=== PATIENT | female | born 1955 | race Caucasian/White ===

== ENCOUNTER 2021-09-08 14:21 | Emergency (ER) | payer MEDICARE ==
[~2021-09-08] VITALS: Ht 167.6 cm; Wt 50.8 kg
[2021-09-08] MEDS ORDERED: FEOSOL325 MG PO (19:11)
== END 2021-09-08 21:33 | disposition home or self-care (01) ==
LOC: ED 14:21
DX: M54.50 Low back pain, unspecified (principal); D50.9 Iron deficiency anemia, unspecified
CPT/HCPCS: 36415; 36430; 74177; 80053; 81001; 85025; 85060; 86850; 86900; 86901; 86922; 99284-25; J1170; J1885; P9016; Q9967

== ENCOUNTER 2021-09-11 06:03 | Emergency (ER) | payer MEDICARE ==
[~2021-09-11] VITALS: Ht 167.6 cm; Wt 51.7 kg
[~2021-09-11 06:03] MED LIST: FEOSOL325 MG PO
--- OUTSIDE RECORDS SUMMARY | 2021-09-11 06:11 | XMS ---
PreManage Notification: YURY HOBSON Security [employer] Events No recent Security Events currently on file CRITERIA MET - [facility] - 2 Visits in 30 Days CARE PROVIDERS There are no care providers on record at this time. Deanne has no Care Guidelines for this patient. [facility] MO.) [facility] NOTE: Visits indicate total known visits. ED/C VISIT TRACKING (12 MO.) [facility] COMPLAINT: - L LOWER BACK PAIN 09/08/2021 14:21 [facility] OR TYPE: Emergency COMPLAINT: - BACK PAIN INPATIENT VISIT TRACKING (12 MO.) No inpatient visits to display in this time frame [email or web address]
[2021-09-11] MEDS ORDERED: ONDANSETRON ODT4 MG PO (08:49)
[2021-09-11] MEDS ORDERED: HYDROCODON-ACE1 EA10 PO (08:49)
== END 2021-09-11 10:03 | disposition home or self-care (01) ==
LOC: ED 06:03
DX: S33.5XXA Sprain of ligaments of lumbar spine, initial encounter (principal); M53.3 Sacrococcygeal disorders, not elsewhere classified; Z79.899 Other long term (current) drug therapy; V57.6XXA Passenger in pick-up truck or van injured in collision with fixed or stationary object in traffic accident, initial encounter
CPT/HCPCS: 36415; 72131; 72192; 85025; 85060; 96374; 96376; 99284-25; J3010

== ENCOUNTER 2023-04-09 22:27 | Observation (INO) | payer MEDICARE ==
[~2023-04-09] VITALS: Ht 167.6 cm; Wt 62.3 kg
[~2023-04-09 22:27] MED LIST changes: +HYDROCODON-ACE1 EA10 PO; +ONDANSETRON ODT4 MG PO
[2023-04-09] MEDS ORDERED: SODIUM CHLORIDE 0.9% 1,000 ML IV ONE (22:45)
[2023-04-09] MEDS ORDERED: ondansetron HCL 4 MG/2 ML VIAL IV ONE (22:45)
[2023-04-09] MEDS ORDERED: MORPHINE SULFATE 4 MG/ML VIAL IV ONE (22:45)
[2023-04-09 22:59] LABS: BASOPHILS 0.4 % (0-2); EOSINOPHILS 2.7 % (0-6); HEMATOCRIT 28.6 % (35.0-50.0); HEMOGLOBIN 8.6 g/dL (12.0-18.0); LYMPHOCYTES 10.7 % (24-44); MCH 20.9 (27-36); MCV 69.8 fl (81-99); MONOCYTES 6.9 % (0-12); NEUTROPHILS 79.3 % (39-80); PLATELET COUNT 307 K/uL (140-440); RBC 4.09 M/ul (4.3-5.7); RDW 19.1 (10.5-15.0)
[2023-04-09 23:07] LABS: ALBUMIN 2.4 g/dL (3.4-5.0); ALBUMIN/GLOBULIN RATIO 0.53 (1.1-2.4); ANION GAP 12.5 (7-21); BILIRUBIN, TOTAL 0.7 ng/dL (0.2-1.0); BUN/CREATININE RATIO 3.37 (6.0-28.6); CALCIUM 8.5 mg/dL (8.5-10.1); CREATININE, SERUM 0.89 mg/dL (0.55-1.02); POTASSIUM 3.5 mmol/L (3.5-5.1); PROTEIN, TOTAL 6.9 g/dL (6.4-8.2)
[2023-04-10] VITALS (7 sets, daily range): BP systolic 101–136; BP diastolic 63–79
[2023-04-10] MEDS ORDERED: LACTATED RINGER'S 1,000 ML IV SCH ×3 (00:15→09:15)
[2023-04-10] MEDS ORDERED: MORPHINE SULFATE 4 MG/ML VIAL IV PRN (00:15)
[2023-04-10] MEDS ORDERED: ondansetron HCL 4 MG/2 ML VIAL IV PRN ×2 (00:15→09:45)
--- NOTE | 2023-04-10 00:54 | NUR ---
pt ARRIVED TO MEDSUR FLOOR, BROUGHT TO FLOOR BY PRIMARY RN NEW. pt A/O, GRAHAM IN ROOM. ADMISSION COMPLETED, VSS. pt VERBALIZES UNDERSTANDING REGARDING POC FOR SHIFT, CALL LIGHT IN REACH. PRIMARY RN REMAINS IN ROOM COMPLETING ASSESSMENT.
--- NOTE | 2023-04-10 02:00 | NUR ---
PICKED PT UP IN ED, REC'D QUICK REPORT FROM RN. PT A/O X3, STATES PX 04/12 ON ARRIVAL,DENIES OFFER OF PAIN MEDS. ASSESSMENT COMPLETED. ORIENTED TO ROOM AND CALL LIGHT. U/A OBTAINED. IV FLUIDS INFUSING PER ORDERS. BED LOCKED IN LOW, CALL LIGHT IN PLACE, CONTINUE POC
[2023-04-10 02:10] LABS: BILIRUBIN, URINE NEGATIVE (negative); BLOOD/HGB, URINE SMALL (Negative); KETONE, URINE NEGATIVE (Negative); LEUK ESTERASE, URINE NEGATIVE (negative); NITRITE, URINE NEGATIVE (negative); PH, URINE 5.5 (5-7)
[2023-04-10 02:16] LABS: EPITHELIAL CELLS, URINE SQUAMOUS 1+ /lpf (0-1+)
[2023-04-10 02:17] LABS: BACTERIA, URINE RARE /hpf (negative); CASTS, URINE NONE SEEN \\lpf; CRYSTALS, URINE NONE SEEN (0-1+); REFLEX CULTURE, URINE No (No)
--- NOTE | 2023-04-10 09:05 | NUR ---
RECIEVED PT REPORT t 0715. PT IS IN BED RESTING WITH EYES OPEN AND WATCHING TELEVISION. NO CARES NEEDED OR REQUESTED WHEN OFFERED. CURRENTLY PT IS IN BED WATCHING TELEVISION AND HAD HER FLUID BAG CHANGED. ASSESSMENT COMPLETE. CALL LIGHT WITHIN REACH
--- NOTE | 2023-04-10 09:05 | NUR ---
KATIA FROM DR. ANGELES TO START LR @ 125ML AND TO ADVANCE DIET TO CLEARS TOLERATED. ORDERS PLACED AT THIS TIME.
[2023-04-10] MEDS ORDERED: ENOXAPARIN SODIUM 40 MG/0.4 ML SYR SUB-Q SCH (09:44)
[2023-04-10] MEDS ORDERED: PANTOPRAZOLE SODIUM 40 MG TABEC PO SCH (09:45)
--- NOTE | 2023-04-10 10:01 | NUR ---
MED REC COMPLETE
--- NOTE | 2023-04-10 10:19 | NUR ---
ROUNDS. PT EXPRESSED FATIGUE, STATING DESIRE TO REST; DECLINED AUDIBLE PRAYER AT THIS TIME. PROVIDED SUPPORTIVE PRESENCE; LISTENED EMPATHETICALLY; PROVIDED HOPSITALITY; GAVE PRAYER SHAWL; PROVIDED SILENT PRAYER. PT EXPRESSED APPRECIATION.
[2023-04-10] MEDS ORDERED: PHARMACY RENAL DOSE ADJUSTMENT 1 DOSE MISC PO SCH (12:00)
--- NOTE | 2023-04-10 12:47 | NUR ---
PT FAMILY ASKED REPAIR WEAVER QUESTIONS ABOUT PT DIAGNOSIS. REPAIR WEAVER STATED THAT SHE DOES NOT HAVE ALL OF THE INFORMATION TO BE ABLE TO REALLY EXPLAIN TO THE PT. REPAIR WEAVER REPORTED THEIR QUESTIONS TO THE RN AND GAVE PT A PT EDUCATION SHEET ABOUT DIAGNOSIS. REPAIR WEAVER ALSO ASSISTED PT TO THE RESTROOM. PT DID NOT KNOW SHE NEEDED TO URINATE INTO THE HAT, REPAIR WEAVER PROVIDED EDUCATION ON THAT AND MARKED THE UNMEASURED VOIDED AMOUNT. CALL LIGHT WITHIN REACH NO FURTHER COMPLAINTS.
[2023-04-10] MEDS ORDERED: HYDROmorphone HCL 1 MG/ML SYR IV PRN (13:00)
--- NOTE | 2023-04-10 13:02 | NUR ---
DRORDERED 1MG OF DILAUDID Q6 PRN FOR PAIN AND 10MG OF NORCO Q6 FOR PAIN WITH 3 HOUR SEPERATION BETWEEN BOTH
--- NOTE | 2023-04-10 13:15 | NUR ---
Spoke with Patricia. She lives with her spouse. She has a walker and a cane. She denies any needs. States her spouse spoils her. They share all chores and denies any financial issues as they recently received a large inheritance. Pt plans on dc to home. No needs from CM.
--- NOTE | 2023-04-10 13:48 | NUR ---
UR NOTE 04/09/23 MET CLINICAL INDICATIONS FOR ADMISSION TO INPATIENT CARE ([facility])
[2023-04-10] MEDS ORDERED: HYDROCODONE/APAP 10/325 1 TAB PO PRN (16:00)
--- NOTE | 2023-04-10 17:39 | NUR ---
NOTICED PT DIDN'T VOID MUCH TODAY EXCEPT FOR ONE UNMEASURED VOID. BLADDER SCANNED SHOWS GASTON 247ML. CHECKED LUNG SOUNDS AND NO CRACKLES OR SIGNS OF FLUID OVERLOAD NO OTHER CARES NEEDED AT THIS TIME CALL LIGHT WITHIN REACH
--- NOTE | 2023-04-10 19:15 | NUR ---
REPORT RECIEVED FROM MELISSA BRO. pt RESTING IN THE BED. BOARD UPDATED. pt DENIES ANY OTHER NEEDS AT THIS TIME. CALL LIGHT WITHIN REACH.
--- NOTE | 2023-04-10 20:45 | NUR ---
ASSESSMENT AND VITAL SIGNS DONE. BOWEL TONES ACTIVE. pt DENIES PAIN OR ANY NEEDS AT THIS TIME. IV ASSESSED, WNL. IVF INFUSING PER ORDER, SEE MAR. WATER REFRESHED. pT DENIES ANY OTHER NEEDS AT THIS TIME. CALL LIGHT WITHIN REACH.
--- NOTE | 2023-04-10 23:15 | NUR ---
pt RESTING IN THE BED WITH EYES CLOSED. RR EVEN AND UNLABORED. CALL LIGHT WITHIN REACH.
--- NOTE | 2023-04-11 01:00 | NUR ---
pt CALLED TO USE THE BR. SBA WITH CANE. pt DENIES ANY OTHER NEEDS AT THIS TIME. CALL LIGHT WITHIN REACH.
--- NOTE | 2023-04-11 01:10 | NUR ---
assisted pt back from the toilet mayur ya
--- NOTE | 2023-04-11 04:48 | NUR ---
pt RESTING IN THE BED WITH EYES CLOSED. RR EVEN AND UNLABORED. CALL LIGHT WITHIN REACH.
[2023-04-11 05:38] LABS: BASOPHILS 0.7 % (0-2); HEMATOCRIT 21.6 % (35.0-50.0); HEMOGLOBIN 6.3 g/dL (12.0-18.0); LYMPHOCYTES 13.4 % (24-44); MCH 20.9 (27-36); MCHC 29.3 g/dl (30-36); MCV 71.4 fl (81-99); NEUTROPHILS 67.9 % (39-80); PLATELET COUNT 171 K/uL (140-440); RBC 3.03 M/ul (4.3-5.7); RDW 19.1 (10.5-15.0)
[2023-04-11 05:56] LABS: ALBUMIN 1.7 g/dL (3.4-5.0); ALBUMIN/GLOBULIN RATIO 0.46 (1.1-2.4); ANION GAP 10.4 (7-21); BILIRUBIN, TOTAL 0.9 ng/dL (0.2-1.0); BUN/CREATININE RATIO 4.41 (6.0-28.6); CALCIUM 7.6 mg/dL (8.5-10.1); CREATININE, SERUM 0.68 mg/dL (0.55-1.02); POTASSIUM 3.4 mmol/L (3.5-5.1); PROTEIN, TOTAL 5.4 g/dL (6.4-8.2)
[2023-04-11 05:59] VITALS: BP 110/65
--- NOTE | 2023-04-11 08:05 | NUR ---
RECIEVED PT REPORT FROM NURSE AT 0745. PT IS CURRENTLY AWAKE IN BED WATCHING TELEVISION. PT REFUSED ANY CARES WHEN OFFERED. CALL LIGHT WITHIN REACH
[2023-04-11 10:41] VITALS: BP 112/64
--- NOTE | 2023-04-11 11:07 | NUR ---
PATIENT NEEDED TO USE THE RESTROOM ALL SHE WANTED ME TO DO WAS TO UNPLUG THE IV MACHINE AND SHE WAS ABLE TO WALK FINE TO THE RESTROOM. i CHANGED HER BED LINEN. i OFFERED HER IF SHE WOULD WANT TO GET BACK TO HER BED OR TO THE CHAIR AND WANTED TO GO TO THE CHAIR.
--- NOTE | 2023-04-11 11:36 | NUR ---
DR MAYORGA ADVANCED DIET TO REGULAR TO ASSESS IF PATIENT CAN TOLERATE IT AND IF SHE DOES PT WILL BE DISCHARGED
[2023-04-11 13:17] VITALS: BP 105/58
== END 2023-04-11 14:00 | disposition home or self-care (01) ==
LOC: ED 22:27 → MS 22:29
PROVIDERS: Family Medicine; ADMIT Internal Medicine; ATTEND Internal Medicine
DX: K85.20 Alcohol induced acute pancreatitis without necrosis or infection (principal); D50.9 Iron deficiency anemia, unspecified; Z98.84 Bariatric surgery status
CPT/HCPCS: 36415; 74177; 80053; 81001; 83690; 84478; 85025; 85060; 96372; 96375; 99285-25; A9270; G0378; J1170; J1650; J2270; J2405; J7030; J7121

== ENCOUNTER 2024-01-08 21:23 | Emergency (ER) | payer MEDICARE ==
[~2024-01-08] VITALS: Ht 167.6 cm; Wt 64.8 kg
[2024-01-08] MEDS ORDERED: HYDROCODONE/ACETA 5/325 TAB PO ONE (23:45)
[2024-01-09] MEDS ORDERED: HYDROCODON-ACE1 EA10 PO (00:13)
[2024-01-09] MEDS ORDERED: HYDROCODONE BIT/ACETAMINOPHEN 5/325 MG 1 TAB HOME.PACK PO PRN (00:15)
[2024-01-09 00:41] VITALS: BP 120/80
== END 2024-01-09 00:48 | disposition home or self-care (01) ==
LOC: ED 21:23
DX: M25.552 Pain in left hip (principal); Z96.7 Presence of other bone and tendon implants
CPT/HCPCS: 73502; 99283; A9270

== ENCOUNTER 2024-09-10 12:44 | Emergency (ER) | payer OTHER, MEDICARE ==
[~2024-09-10] VITALS: Ht 167.6 cm; Wt 62.0 kg
[2024-09-10] MEDS ORDERED: HYDROCODONE/ACETA 5/325 TAB PO ONE (18:15)
[2024-09-10] MEDS ORDERED: ONDANSETRON 4 MG TAB ODT SL ONE (18:15)
[2024-09-10] MEDS ORDERED: HYDROCODON-ACE1 EA10 PO (18:20)
[2024-09-10] MEDS ORDERED: AMOX TR-K CLV1 EAC1 PO (18:20)
[2024-09-10] MEDS ORDERED: AMOXICILLIN/CLAVULANATE K 875 MG TAB PO ONE (18:30)
[2024-09-10] MEDS ORDERED: HYDROCODONE BIT/ACETAMINOPHEN 5/325 MG 1 TAB HOME.PACK PO ONE (19:00)
[2024-09-10 19:09] VITALS: BP 131/75
== END 2024-09-10 19:13 | disposition home or self-care (01) ==
LOC: ED 12:44
DX: S61.452A Open bite of left hand, initial encounter (principal); S80.02XA Contusion of left knee, initial encounter; W01.0XXA Fall on same level from slipping, tripping and stumbling without subsequent striking against object, initial encounter; W54.0XXA Bitten by dog, initial encounter
CPT/HCPCS: 73130; 73560; A9270